=== PATIENT | female | born 1945 | race Hispanic/Latino ===

== ENCOUNTER 2017-09-09 10:24 | Outpatient (CLI) | payer MEDICARE ==
--- NOTE | 2017-09-09 11:00 | XRay Report ---
XRAY RIGHT KNEE 4 THREE VIEWS: 09/09/17 CLINICAL: Right knee pain. FINDINGS: Moderate osteopenia. Mild narrowing of the medial joint space with small osteophytes. Small lateral osteophytes. Patellofemoral joint osteoarthritis with small osteophytes. No fracture or dislocation.No joint effusion.Normal soft tissues. IMPRESSION: Moderate osteoarthritis.
== END 2017-09-09 10:25 | disposition home or self-care (01) ==
LOC: SPVIMAG 10:24
PROVIDERS: ATTEND Orthopaedic Surgery Sports Medicine
DX: M17.11 Unilateral primary osteoarthritis, right knee (principal); M85.861 Other specified disorders of bone density and structure, right lower leg